=== PATIENT | male | born 1960 | race Caucasian/White ===

== ENCOUNTER 2017-07-19 10:49 | Emergency (ER) | payer OTHER ==
[~2017-07-19] VITALS: Ht 167.6 cm; Wt 91.5 kg
[2017-07-19 10:51] VITALS: BP 161/105; PULSE 95; RESP 16; TEMP 98.1; O2SAT 98
[2017-07-19] MEDS ORDERED: LEXA10TA PO (11:31)
--- NOTE | 2017-07-19 11:35 | PD ---
HPI Chief Complaint: Depression Time Seen by Provider: 11:17 Travel History International Travel<30 days: No Contact w/Intl Traveler<30days: No Traveled to known affect area: No History of Present Illness HPI This patient complains of depression and wants to get psychiatric evaluation. He has long-standing history of depression. He saw his primary physician yesterday and was restarted on his Lexapro which she had been out of for some time. He denies suicidal ideation. He doesn't feel like he is a danger to himself or others. He denies hallucination. No overdose. He is a rare alcohol drinker. He does occasionally abuse Dilaudid because he used to have chronic orthopedic pains in his left shoulder. He denies fever. No chest symptoms such as pain or shortness of breath or tightness or heaviness. Symptoms severity is moderate. Duration one week. No alleviating factors PFSH Past Medical History Depression: Yes Tetanus Vaccination: > 5 Years Influenza Vaccination: No Social History Alcohol Use: Yes (rare) Tobacco Use: No Substance Use: Yes (past) Allergies-Medications (Allergen,Severity, Reaction): Coded Allergies: No Known Allergies (Unverified , 07/19/17) Reported Meds & Prescriptions Reported Meds & Active Scripts Active Reported Lexapro (Escitalopram Oxalate) 10 Mg Tab 10 Mg PO DAILY Review of Systems General / Constitutional: No: Fever Eyes: No: Visual changes HENT: No: Headaches Cardiovascular: No: Chest Pain or Discomfort Respiratory: No: Shortness of Breath Gastrointestinal: No: Abdominal Pain Genitourinary: No: Dysuria Musculoskeletal: No: Pain Skin: No Rash Neurologic: No: Weakness Psychiatric: Positive: Depression Endocrine: No: Polydipsia Hematologic/Lymphatic: No: Easy Bruising Physical Exam Narrative GENERAL: Well-nourished, well-developed patient in no apparent distress. SKIN: Focused skin assessment reveals no rash and nodules. Skin is Warm and dry. HEAD: Atraumatic. Normocephalic. EYES: Pupils equal and round. No scleral icterus. No injection or drainage. ENT: No nasal bleeding or discharge. Mucous membranes pink and moist. NECK: Trachea midline. No JVD. CARDIOVASCULAR: Regular rate and rhythm. No murmur appreciated. RESPIRATORY: No accessory muscle use. Clear to auscultation. Breath sounds equal bilaterally. GASTROINTESTINAL: Abdomen soft, non-tender, nondistended. Hepatic and splenic margins not palpable. MUSCULOSKELETAL: No obvious deformities. No clubbing. No cyanosis. No edema. NEUROLOGICAL: Awake and alert. No obvious cranial nerve deficits. Motor grossly within normal limits. Normal speech. PSYCHIATRIC: Depressed mood and flat affect; insight and judgment normal. Data Data Last Documented VS Vital Signs Date Time Temp Pulse Resp B/P (MAP) Pulse Ox O2 Delivery O2 Flow Rate FiO2 07/19/17 10:51 98.1 95 16 161/105 (123) 98 Orders Orders Complete Blood Count With Diff (07/19/17 11:28) Basic Metabolic Panel (Bmp) (07/19/17 11:28) Alcohol (Ethanol) (07/19/17 11:28) Drug Screen, Random Urine (07/19/17 11:28) Psych Screen (07/19/17 11:28) Labs Laboratory Tests Test 07/19/17 12:00 White Blood Count 12.1 TH/MM3 Red Blood Count 5.00 MIL/MM3 Hemoglobin 14.1 GM/DL Hematocrit 42.4 % Mean Corpuscular Volume 84.8 FL Mean Corpuscular Hemoglobin 28.3 PG Mean Corpuscular Hemoglobin Concent 33.3 % Red Cell Distribution Width 12.9 % Platelet Count 415 TH/MM3 Mean Platelet Volume 6.8 FL Neutrophils (%) (Auto) 79.0 % Lymphocytes (%) (Auto) 13.1 % Monocytes (%) (Auto) 6.0 % Eosinophils (%) (Auto) 0.2 % Basophils (%) (Auto) 1.7 % Neutrophils # (Auto) 9.6 TH/MM3 Lymphocytes # (Auto) 1.6 TH/MM3 Monocytes # (Auto) 0.7 TH/MM3 Eosinophils # (Auto) 0.0 TH/MM3 Basophils # (Auto) 0.2 TH/MM3 CBC Comment DIFF FINAL Differential Comment Blood Urea Nitrogen 17 MG/DL Creatinine 1.10 MG/DL Random Glucose 96 MG/DL Calcium Level 9.4 MG/DL Sodium Level 140 MEQ/L Potassium Level 3.8 MEQ/L Chloride Level 106 MEQ/L Carbon Dioxide Level 25.9 MEQ/L Anion Gap 8 MEQ/L Estimat Glomerular Filtration Rate 70 ML/MIN Ethyl Alcohol Level LESS THAN 3 MG/DL MDM Medical Decision Making Medical Screen Exam Complete: Yes Emergency Medical Condition: Yes Medical Record Reviewed: Yes Differential Diagnosis Depression, suicidal ideation, adjustment disorder Narrative Course I have reviewed the patient's electronic medical record. I've ordered medical clearance workup CBC is normal Metabolic profile is normal Alcohol is negative Drug screen is ordered but not completed yet but will not change manager Patient requests psychiatric evaluation. We will direct him to the main hospital and have report called to the psychiatric screener so he can get psychiatric evaluation. Patient is is medically stable as can be made. Diagnosis Primary Impression: Depression, major, recurrent Qualified Codes: F33.1 - Major depressive disorder, recurrent, moderate Robert Vazquez MD Jul 19, 2017 11:35
[2017-07-19 12:09] LABS: AUTOMATED NEUTROPHIL # 9.6 TH/MM3 (1.8-7.7); BASOPHIL # 0.2 TH/MM3 (0-0.2); BASOPHIL % 1.7 % (0.0-2.0); EOSINOPHIL % 0.2 % (0.0-4.0); HEMATOCRIT 42.4 % (39.0-51.0); HEMO FLAGS DIFF FINAL; LYMPH % 13.1 % (9.0-44.0); LYMPHOCYTE # 1.6 TH/MM3 (1.0-4.8); MEAN CELL VOLUME 84.8 FL (80.0-100.0); MEAN CORPUSCULAR HEMOGLOBIN 28.3 PG (27.0-34.0); MEAN CORPUSCULAR HGB CONC 33.3 % (32.0-36.0); PLATELET COUNT 415 TH/MM3 (150-450); RED CELL DISTRIBUTION WIDTH 12.9 % (11.6-17.2); WHITE BLOOD COUNT 12.1 TH/MM3 (4.0-11.0)
[2017-07-19 12:18] LABS: CHLORIDE 106 MEQ/L (98-107); POTASSIUM 3.8 MEQ/L (3.5-5.1); SODIUM (NA) 140 MEQ/L (136-145)
[2017-07-19 12:21] LABS: ANION GAP 8 MEQ/L (5-15); BICARBONATE 25.9 MEQ/L (21.0-32.0); BLOOD UREA NITROGEN 17 MG/DL (7-18)
[2017-07-19 12:24] LABS: GLOMERULAR FILTRATION RATE 70 ML/MIN (>89)
[2017-07-19 12:25] LABS: ALCOHOL LESS THAN 3 MG/DL (0-5)
[2017-07-19 16:47] VITALS: BP 150/92; PULSE 92; RESP 16; TEMP 98.3; O2SAT 99
[2017-07-19] MEDS ORDERED: ACETAMINOPHEN 325 MG TAB PO ONE (17:00)
[2017-07-19 17:46] VITALS: BP 150/92; PULSE 92; RESP 16; O2SAT 98
== END 2017-07-19 18:33 | disposition home or self-care (01) ==
LOC: PHED 10:49 → NEPJ 18:33
DX: F33.1 Major depressive disorder, recurrent, moderate (principal)
CPT/HCPCS: 80048; 80307; 85025; 99283